=== PATIENT | female | born 1995 | race Caucasian/White ===

== ENCOUNTER 2017-01-24 20:00 | Emergency (ER) | payer OTHER ==
[2017-01-24 22:32] VITALS: BP 116/66
--- NOTE | 2017-02-24 13:57 | UC ---
Neck Pain HPI - HPI Summary HPI Summary: States she was laughing with friends and suddenly as she opened her mouth wide, felt a very acute intense pain on the right side of jaw. Denies trauma, pain is triggered with movements of her jaw. Denies dental problems, this is the first time she has this issue - History of Current Complaint Chief Complaint: UCGeneralIllness Stated Complaint: JAW PAIN Time Seen by Provider: 01/24/17 21:57 Hx Last Menstrual Period: IUD Pain Intensity: 5 Pain Scale Used: 0-10 Numeric - Allergies/Home Medications Allergies/Adverse Reactions: Allergies Allergy/AdvReac Type Severity Reaction Status Date / Time No Known Allergies Allergy Verified 01/24/17 20:08 Home Medications: Home Medications NK [No Home Medications Reported] 01/24/17 [History Confirmed 01/24/17] PMH/Surg Hx/FS Hx/Imm Hx Previously Healthy: Yes - Surgical History Surgical History: None - Social History Alcohol Use: Occasionally Substance Use Type: None Smoking Status (MU): Never Smoked Tobacco Review Of Systems Constitutional: Positive: Negative ENT: Positive: Other - jaw pain All Other Systems Reviewed And Are Negative: Yes Physical Exam Triage Information Reviewed: Yes Vital Signs: Initial Vital Signs Temp 98.3 F 01/24/17 20:05 Pulse 86 01/24/17 20:05 Resp 18 01/24/17 20:05 BP 142/73 01/24/17 20:05 Pulse Ox 100 01/24/17 20:05 Vital Signs Reviewed: Yes Eye Exam: Normal ENT: Positive: Hearing grossly normal, Pharynx normal, TMs normal, Other - right mandibular condyle tender to palpation, no subluxation Neck: Positive: Other: - mild diffuse goiter Respiratory Exam: Normal Cardiovascular Exam: Normal Neck Pain Course/Dx - Course Course Of Treatment: Patient instructed to continue pain medication as needed and avoid opening jaw excessively, bland diet. Follow up with PCP for thyroid exam - Differential Dx/Diagnosis Provider Diagnoses: TMJ. THyorid goiter Discharge - Discharge Plan Condition: Stable Disposition: HOME Patient Education Materials: Temporomandibular Disorder (ED), Thyroid Goiter ( ED) Referrals: [facility] - Arley CRAWLEY [Primary Care Provider] - Additional Instructions: Ibuprofen 200mg tab, take 3 tab with food when needed for pain follow up with your doctor to check thyroid goiter
== END 2017-01-24 22:21 | disposition home or self-care (01) ==
LOC: UCEAST 20:00
DX: M26.69 Other specified disorders of temporomandibular joint (principal); E04.9 Nontoxic goiter, unspecified
CPT/HCPCS: 99212; G0463